=== PATIENT | female | born 1975 | race Caucasian/White ===

== ENCOUNTER 2021-05-09 15:24 | Outpatient (CLI) | payer OTHER, SELFPAY ==
[2021-05-09 16:00] LABS: SARS-CoV-2 Ag Negative (Negative)
== END 2021-05-09 15:25 | disposition home or self-care (01) ==
LOC: CHSLAB 15:33
PROVIDERS: PCP Family Medicine; Visit Provider Physician Assistant
DX: Z20.822 Contact with and (suspected) exposure to COVID-19 (principal)
CPT/HCPCS: 87426; C9803

== ENCOUNTER 2021-08-29 16:17 | Emergency (ER) | payer OTHER, SELFPAY ==
--- NOTE | ~2021-08-29 | XR_ITS ---
EXAMINATION: XR pelvis 1-2V DATE: 08/29/2021 17:58 INDICATION: Pelvis injury. TECHNIQUE: An anteroposterior view of the pelvis was obtained. COMPARISON: None. FINDINGS: Bone alignment is normal. No fracture. There is moderate lumbar spondylosis. The hip joint spaces are normal. IMPRESSION: 1. No fracture. Reviewed, dictated and finalized at location A. IMPRESSION: 1. No fracture.
[2021-08-29] MEDS: KETOROLAC (*BKC) 60 MG/2 ML VIAL IM (17:47)
[2021-08-29 17:49] VITALS: BP 126/75; PULSE 62; RESP 20; TEMP 36.7; O2SAT 97
--- NOTE | 2021-08-29 17:55 | ED.WOUNDLAC ---
HPI - Wound/Laceration General Chief Complaint: Urogenital-Female Stated Complaint: vagina pain Source: patient and family Mode of arrival: ambulatory History of Present Illness HPI narrative: patient presents after she injured the left pelvic and groin area has a swollen bruised left perennial area with tenderness hematoma and bruising with no bleeding there is tenderness with palpation and movement. Onset (ago): hour(s) Location: genitals Related Data Home Medications Medication Instructions Recorded Confirmed hydrocodone-acetaminophen 5 - 325 tablet Q6-8H PRN 08/29/21 08/29/21 pregabalin 75 mg DAILY 08/29/21 08/29/21 Allergies Allergy/AdvReac Type Severity Reaction Status Date / Time No Known Allergies Allergy Verified 08/29/21 17:38 Review of Systems Review of Systems: All systems reviewed & are unremarkable except as noted in HPI and below PMFSH Past Medical History Medical History Chronic pain Fibromyalgia Exam Const: General: no acute distress Orientation/consciousness: patient oriented x3 HENMT: Head: normal to inspection Eyes: Conjunctivae: conjunctivae normal Pupils: Equal, round and reactive pupils present Neck: Neck: normal visual inspection Chest: Chest palpation & inspection: normal inspection of the chest Resp: Effort & Inspection: normal respiratory effort Cardio: Rate: regular rate Rhythm: regular rhythm GI: GI Palp: Yes Soft to palpation Skin: Other: bruising swelling with hematoma left groin area Neuro: General: patient oriented x3 Extrem: General: normal to inspection and no pedal edema Psych: Mental Status: mental status grossly normal Affect: normal affect Course Course Emergency Course: patient received Toradol, and x-ray performed reviewed with patient and family Critical Care Time Critical Care Time Critical Care Time: No Discharge Plan Discharge Clinical Impression: Contusion Qualifiers: Encounter type: initial encounter Contusion area: pelvic area Qualified Code(s): S30.0XXA - Contusion of lower back and pelvis, initial encounter Patient Disposition: Home, Self-Care Condition: Stable Instructions: Antibiotic Form, Contusion in Adults (ED) Additional Instructions: take medicine as prescribed can use ice to affected area in follow-up primary care physician if symptoms persist or worsen. Prescriptions: New tramadol [Ultram] 50 mg tablet 50 mg PO Q6H PRN (Reason: pain) Qty: 20 RF: 0 No Action hydrocodone-acetaminophen 5-325 mg tablet 5 - 325 tablet Q6-8H PRN (Reason: Pain) RF: 0 pregabalin 75 mg capsule 75 mg DAILY RF: 0 Follow-up/Referrals: Greg Winn M.D. [Primary Care Provider] - Time of Disposition: 18:37
[2021-08-29 18:51] VITALS: BP 93/72; PULSE 63; RESP 16; O2SAT 98
== END 2021-08-29 18:53 | disposition home or self-care (01) ==
PROVIDERS: Emergency Provider Emergency Medicine; PCP Family Medicine
DX: S30.0XXA Contusion of lower back and pelvis, initial encounter (principal)
CPT/HCPCS: 72170; 96372; 99283; J1885

== ENCOUNTER 2021-12-05 17:30 | Inpatient (IN) | payer OTHER, SELFPAY ==
[2021-12-05] VITALS (13 sets, daily range): BP systolic 114–143; BP diastolic 64–84; PULSE 41–74; RESP 12–24; TEMP 36.9; O2SAT 93–100; BMI 15.4
--- NOTE | ~2021-12-05 | CT_ITS ---
EXAMINATION: CT abdomen pelvis wo con DATE: 12/05/2021 18:53 INDICATION: Generalized abdominal pain. Nausea and vomiting. TECHNIQUE: Computed tomography (CT) of the abdomen and pelvis was performed without intravenous contr ast. Automated exposure control and iterative reconstruction technique were employed. The dose-length product was 170.99 mGy-cm. COMPARISON: None. FINDINGS: The visualized portions of the lung bases demonstrate mild atelectasis in left lower lobe. No pleural effusion. The heart size is normal. No pericardial effusion. Pectus excavatum is noted. Th ere is a 3.3 cm cyst in the liver. The spleen is normal. The gallbladder, pancreas, adrenal glands, a nd left kidney are normal. There is a 2 mm stone in right kidney. There are no dilated loops of bowel . The appendix is not visualized. There are no pathologically enlarged lymph nodes. There is no free intraperitoneal fluid. There is moderate lumbar spondylosis. IMPRESSION: 1. 2 mm nonobstructing right kidney stone. Reviewed, dictated and finalized at location A.
--- NOTE | 2021-12-05 17:40 | ECG_ITS ---
Measurements Intervals [place] Rate: 40 P: 69 DC: 159 QRS: 95 QRSD: 83 T: 75 QT: 503 QTc: 414 Interpretive Statements SINUS BRADYCARDIA POSSIBLE LEFT ATRIAL ENLARGEMENT [-0.1mV P-WAVE IN V1/V2] BORDERLINE RIGHT AXIS DEVIATION [QRS AXIS > 90] OTHERWISE UNREMARKABLE ECG NO PREVIOUS ECG AVAILABLE FOR COMPARISON Electronically Signed On 12-06-2021 12:09:12 CDT by Bronson Douglass M.D.
[2021-12-05] MEDS: ONDANSETRON INJ 4 MG/2 ML VIAL IV PUSH ×2 (17:53→22:03)
[2021-12-05 18:21] LABS: Basophils Absolute Auto 0.04 K/mm3 (0.00-0.10); Basophils Percent Auto 0.3 % (0.0-1.0); Eosinophils Absolute Auto 0.08 K/mm3 (0.02-0.50); Eosinophils Percent Auto 0.7 % (1.0-6.0); Hematocrit 36.7 % (35.0-49.0); Hemoglobin 12.7 g/dL (12.0-15.0); Immature Granulocyte Absolute 0.06 K/mm3 (0.00-0.00); Immature Granulocyte Percent A 0.5 % (0.0-0.0); Lymphocytes Absolute Auto 2.11 K/mm3 (1.10-4.50); Lymphocytes Percent Auto 17.7 % (18.0-42.0); Mean Corpuscular HGB Conc 34.6 g/dL (32.0-36.0); Mean Corpuscular Hemoglobin 31.9 pg (27.0-31.0); Mean Corpuscular Volume 92.2 fL (78.0-102.0); Mean Platelet Volume 11.4 fl (9.2-11.8); Monocytes Absolute Auto 0.94 K/mm3 (0.10-0.90); Monocytes Percent Auto 7.9 % (2.0-11.0); Neutrophils Absolute Auto 8.7 K/mm3 (1.7-7.2); Neutrophils Percent Auto 72.9 % (50.0-70.0); Platelet Count Result 186 K/mm3 (150-420); Red Blood Count 3.98 M/mm3 (4.20-5.40); Red Cell Distribution Width 12.4 % (11.6-14.4); White Blood Count 11.9 K/mm3 (4.8-10.8)
[2021-12-05 18:38] LABS: Pregnancy On Board Control Positive; Urine Pregnancy Test Negative
[2021-12-05 18:41] LABS: Add Urine Microscopic? YES; Appearance Urine Clear (Clear); Bilirubin Urine 1+ (Negative); Blood Urine 3+ (Negative); Color Urine Brown (Yellow); Glucose Urine UA Trace (Negative); Ketones Urine 2+ (Negative); Leukocyte Esterase Ur Trace (Negative); Nitrate Urine Negative (Negative); Protein Urine 2+ (Negative); Specific Grav Ur 1.015 (1.010-1.020); pH Urine 8.5 (5.0-8.0)
[2021-12-05 18:45] LABS: Bacteria Urine 2+ /hpf; Mucus Urine Few /lpf; RBC Urine >75 /hpf (0-2); Squamous Epithelial Cell Urine Few /hpf (Few)
[2021-12-05 18:48] LABS: Alanine Aminotransferase 21 U/L (14-59); Albumin Level 3.9 g/dL (3.4-5.0); Alkaline Phosphatase 57 U/L (46-116); Anion Gap 12 mmol/L (8-16); Aspartate Amino Transferase 15 U/L (15-37); Bilirubin,Total 0.8 mg/dL (0.00-1.00); Blood Urea Nitrogen 18 mg/dL (7-18); Carbon Dioxide 25 mmol/L (21-32); Chloride 102 mmol/L (98-108); Estimated CRCL calculation 50 ml/min; Estimated Glomerular Filt Rate > 60; Glucose 109 mg/dL (70-99); Lipase 81 U/L (73-393); Osmolality Calculated 290 mOsm/kg (285-295); Potassium 2.9 mmol/L (3.5-5.1); Sodium 139 mmol/L (136-145); Thyroid Stimulating Hormone 1.81 uIU/mL (0.36-3.74); Total Protein 6.7 g/dL (6.4-8.2)
[2021-12-05 18:49] LABS: Amphetamine Screen Urine Negative (Negative); Barbiturate Screen Urine Negative (Negative); Benzodiazepines Screen Urine Negative (Negative); Cannabinoid Screen Urine Positive (Negative); Cocaine Screen Urine Negative (Negative); Methadone Screen Urine Negative (Negative); Opiate Screen Urine Negative (Negative); Phencyclidine Screen Urine Negative (Negative)
[2021-12-05] MEDS: METOCLOPRAMIDE HCL INJ 10 MG/2 ML VIAL IV PUSH (18:55)
[2021-12-05 19:00] LABS: CRP < 0.2 mg/dL (0.0-0.9)
[2021-12-05] MEDS: SODIUM CHLORIDE 0.9% IV 1,000 ML 999 ML IV CONT (19:27)
[2021-12-05] MEDS: KCL 20 MEQ/SW 100 ML 100 ML 50 MEQ IVPB (19:28)
--- NOTE | 2021-12-05 19:31 | ED.NAVMDI ---
HPI - Nausea/Vomiting/Diarrhea General Chief complaint: Nausea/Vomiting/Diarrhea Stated complaint: amb Time Seen by Provider: 12/05/21 17:39 Source: patient Mode of arrival: EMS Limitations: no limitations History of Present Illness HPI Narrative: This is a 46-year-old female with history of fibromyalgia and chronic pain currently taking pregabalin, presents via EMS with some nausea and vomiting some diffuse abdominal discomfort with dysuria and does some mild flank pain. Symptoms started 2 to 3 days ago and have worsened, currently afebrile vital signs blood pressure is stable the patient initially had a heart rate in the 40s, with no chest pain no shortness of breath, does have some dysuria and no hematuria. MD elicited complaint: nausea, vomiting and abdominal pain Onset (ago): day(s) Description of vomiting: watery Description of diarrhea: mucus Associated nausea: Yes Associated abdominal pain: Yes Location of pain: diffuse Pain consistency: intermittent Severity: moderate Quality: aching Exacerbating factors: eating Related Data Home Medications Medication Instructions Recorded Confirmed hydrocodone 5 mg-acetaminophen 325 5 - 325 tablet Q6-8H PRN Pain 08/29/21 12/05/21 mg tablet pregabalin 75 mg capsule 75 mg DAILY 08/29/21 12/05/21 Allergies Allergy/AdvReac Type Severity Reaction Status Date / Time No Known Allergies Allergy Verified 12/05/21 17:40 Review of Systems Review of Systems: All systems reviewed & are unremarkable except as noted in HPI and below PMFSH Past Medical History Medical History Chronic pain Fibromyalgia Exam Const: General: ill appearing Limitations: no limitations HENMT: Head: normal to inspection Eyes: Conjunctivae: conjunctivae normal EOM: EOMs intact bilaterally Neck: Neck: normal visual inspection, no lymphadenopathy and no meningeal signs Chest: Chest palpation & inspection: normal inspection of the chest Resp: Effort & Inspection: normal respiratory effort Cardio: Rate: regular rate and bradycardic Rhythm: regular rhythm GI: GI Palp: Yes Soft to palpation and Yes Tenderness to palpation present (GI) Auscultation: normal bowel sounds : General: Yes CVA tenderness Urinary Catheter: Urinary Catheter: patent and draining Skin: General skin exam: normal color Rashes: no rashes Wounds: no wounds Neuro: General: patient oriented x3, moves all extremities, no meningeal signs and no focal motor deficits Psych: Mental Status: mental status grossly normal Affect: normal affect Course Course Emergency Course: Patient received IV fluids and IV Zofran and IV Reglan vomiting has improved, patient initially had a decreased heart rate on EKG, reassessment of patient's heart rate is in the 70s and up to 90s, otherwise patient is more comfortable, with no chest pain no shortness of breath. CT scan abdomen reviewed with patient which showed a right 2mm nonobstructing kidney stone. UA shows a UTI, and potassium was 2.9 patient was started on AK rider and ceftriaxone for her UTI. Vital Signs Vital signs: Vital Signs Temperature 36.9 C 12/05/21 17:30 Pulse Rate 48 L 12/05/21 17:30 Respiratory Rate 20 12/05/21 17:30 Blood Pressure 141/84 H 12/05/21 17:30 Pulse Oximetry 100 12/05/21 17:30 Oxygen Delivery Room Air 12/05/21 17:30 Temperature 36.9 C 12/05/21 17:30 Pulse Rate 41 L 12/05/21 18:30 Respiratory Rate 17 12/05/21 18:30 Blood Pressure 143/80 H 12/05/21 18:30 Pulse Oximetry 100 12/05/21 18:30 Oxygen Delivery Room Air 12/05/21 18:30 MDM - Nausea/Vomiting/Diarrhea Lab Data Result diagrams: 12/05/21 18:07 12/05/21 18:07 Labs: Lab Results 12/05/21 12/05/21 12/05/21 Range/Units 18:07 18:07 18:07 WBC 11.9 H (4.8-10.8) K/mm3 RBC 3.98 L (4.20-5.40) M/mm3 Hgb 12.7 (12.0-15.0) g/dL Hct 36.7 (35.0-49.0)
--- NOTE | 2021-12-05 19:59 | PC.NURSE ---
Called for bed request [id number] admit order by ERP [id number]
--- NOTE | 2021-12-05 20:08 | PC.NURSE ---
PT admitted with K+ and 0.9ns bolus running
--- NOTE | 2021-12-05 20:10 | PC.NURSE ---
Pt transported to floor by lead quality technician
--- NOTE | 2021-12-05 20:15 | ADMGEN ---
This patient, Elena Amaral, was admitted to 2nd Floor Room 205-2. Patient oriented to hospital policies and general routines including ID bracelet, bed and alarms, visiting hours, pain management, procedures, bathroom and other care routines, personal items, smoking policy, room service/diet, and visiting hours. Information on how to activate the Rapid Response Team has been discussed. Patient are encouraged to report perceived risks to care and to ask questions if they do not understand what they are told or what they should do.
[2021-12-05] MEDS: SODIUM CHLORIDE 0.9% IV 1,000 ML 100 ML IV CONT (21:13)
[2021-12-06 03:49] VITALS: BP 134/70; PULSE 68; RESP 18; TEMP 37.4; O2SAT 97
--- NOTE | 2021-12-06 05:02 | PC.NURSE ---
PO potassium ordered at 2310 not given d/t electronic record being down, order did not on print on paper MAR, pt continues to have nausea and vomiting, would not be able to keep med down.
[2021-12-06 05:25] LABS: Hematocrit 33.9 % (35.0-49.0); Hemoglobin 11.5 g/dL (12.0-15.0); Mean Corpuscular HGB Conc 33.9 g/dL (32.0-36.0); Mean Corpuscular Hemoglobin 31.3 pg (27.0-31.0); Mean Corpuscular Volume 92.4 fL (78.0-102.0); Mean Platelet Volume 11.4 fl (9.2-11.8); Platelet Count Result 178 K/mm3 (150-420); Red Blood Count 3.67 M/mm3 (4.20-5.40); Red Cell Distribution Width 12.3 % (11.6-14.4); White Blood Count 16.5 K/mm3 (4.8-10.8)
[2021-12-06 05:45] LABS: Alanine Aminotransferase 20 U/L (14-59); Albumin Level 3.6 g/dL (3.4-5.0); Alkaline Phosphatase 52 U/L (46-116); Anion Gap 11 mmol/L (8-16); Aspartate Amino Transferase 16 U/L (15-37); Bilirubin,Total 0.5 mg/dL (0.00-1.00); Blood Urea Nitrogen 10 mg/dL (7-18); Calcium 8.1 mg/dL (8.5-10.1); Carbon Dioxide 24 mmol/L (21-32); Chloride 102 mmol/L (98-108); Estimated CRCL calculation 61 ml/min; Estimated Glomerular Filt Rate > 60; Glucose 103 mg/dL (70-99); Osmolality Calculated 283 mOsm/kg (285-295); Potassium 3.2 mmol/L (3.5-5.1); Sodium 137 mmol/L (136-145); Total Protein 6.3 g/dL (6.4-8.2)
[2021-12-06] MEDS: SODIUM CHLORIDE 0.9% IV 1,000 ML 100 ML IV CONT ×2 (07:31→17:54)
--- NOTE | 2021-12-06 07:42 | PM.IMHP ---
H&P: HPI History of Present Illness Date/Time: 12/06/21 07:42 Chief Complaint: Nausea and vomiting and abdominal discomfort Narrative: This is a 46-year-old female that presented to our emergency department with complaints of nausea and vomiting. Patient has a past medical history of fibromyalgia and atrial septal defect at . Patient notes that approximately 2 to 3 days ago she started to experiencing abdominal discomfort with nausea and vomiting. Patient notes that she she had a stomach bug. Patient notes when she started to experience weakness is when she decided to call EMS to come to our emergency department. Patient notes that in the past when her potassium was low she will feel weak and thought maybe her potassium was low again. Patient does have a history of fibromyalgia and uses THC and CBD to control her pain patient was also found to have a urinary tract infection. Vital signs 97.2, 44, 14, 98%, 111/71, sodium 139, potassium 2.9, BUN 18, creatinine 0.78, glucose 104,, total bilirubin 0.5, AST 16, ALT 20, CRP 0.2, TSH 1.81, UA positive for protein glucose ketones blood bilirubin urobilinogen leukocyte Estrace and bacteria toxicology positive for cannabis pelvis x-ray no fracture noted CT of the abdomen and pelvis indicates 2 mm obstructive right kidney stone. Today patient is still experiencing nausea and vomiting she will be made n.p.o. and receive Reglan along with Compazine and antibiotic to treat her urinary tract infection. The patient denies SOB, CP, palpitation, extremity numbness, lightheadedness, dizziness, constipation, diarrhea, chills, or fever. Review of Systems Review of Systems: A 14 organ system Review of Systems was performed and pertinent positives included in the HPI, otherwise remaining ROS is negative. [facility] Past Medical History Medical History Chronic pain Fibromyalgia Social History Social History Smoking packs per day: 1 Smoking cigarettes per day: 20.0 Years smoked: 30 Smoking pack-years: 30.00 Smoking status: Current every day smoker Tobacco type: cigarettes Second hand tobacco smoke exposure: Yes Substance use: current Substance use type: marijuana Last use: today Spiritual care concerns: No Meds Home Medications and Allergies Home Medications Medication Instructions Recorded Confirmed Type hydrocodone 5 mg-acetaminophen 325 5 - 325 tablet Q6-8H PRN Pain 08/29/21 12/05/21 History mg tablet pregabalin 75 mg capsule 75 mg DAILY 08/29/21 12/05/21 History Allergies Allergy/AdvReac Type Severity Reaction Status Date / Time No Known Allergies Allergy Verified 12/05/21 17:40 Vital Signs Vital Signs - 24 hr 12/05/21 17:30 12/05/21 18:00 12/05/21 18:30 Temperature 98.5 F Pulse Rate 48 L 49 L 41 L Respiratory Rate 20 16 17 Blood Pressure 141/84 H 139/81 143/80 H Pulse Oximetry 100 99 100 Oxygen Delivery Room Air Room Air Room Air 12/05/21 19:08 12/05/21 19:15 12/05/21 19:17 Temperature Pulse Rate 43 L 46 L 47 L Respiratory Rate 21 H 24 H 22 H Blood Pressure 114/65 Pulse Oximetry 100 99 93 Oxygen Delivery 12/05/21 19:30 12/05/21 19:33 12/05/21 19:45 Temperature Pulse Rate 74 68 45 L Respiratory Rate 22 H 18 21 H Blood Pressure 129/76 Pulse Oximetry 99 100 100 Oxygen Delivery 12/05/21 19:46 12/05/21 20:00 12/05/21 20:15 Temperature Pulse Rate 45 L 45 L 43 L Respiratory Rate 17 12 Blood Pressure 123/74 Pulse Oximetry 98 Oxygen Delivery 12/05/21 23:50 12/05/21 23:50 12/06/21 03:49 Temperature 98.4 F Pulse Rate 50 L 43 L 68 Respiratory Rate 20 Blood Pressure 132/64 Pulse Oximetry 99 Oxygen Delivery Room Air 12/06/21 03:49 Temperature 99.4 F Pulse Rate 68 Respiratory Rate 18 Blood Pressure 134/70 Pulse Oximetry 97 Oxygen Delivery Room Air Exam Narrativ
[2021-12-06 08:00] VITALS: BP 111/71; PULSE 44; RESP 14; TEMP 36.2; O2SAT 98
[2021-12-06] MEDS: LORazepam INJ (*CRX) 2 MG/ML VIAL 0.5 MG IV PUSH (08:10)
[2021-12-06] MEDS: KCL 20 MEQ/SW 100 ML 100 ML 50 MEQ IVPB (08:11)
[2021-12-06] MEDS: PANTOPRAZOLE SODIUM IV 40 MG VIAL IV PUSH ×2 (09:28→20:43)
[2021-12-06] MEDS: METOCLOPRAMIDE HCL INJ 10 MG/2 ML VIAL IV PUSH ×3 (11:36→23:47)
[2021-12-06 12:00] VITALS: PULSE 57
[2021-12-06 16:00] VITALS: BP 107/68; PULSE 53; RESP 17; TEMP 37.1; O2SAT 97
[2021-12-06] MEDS: PROCHLORPERAZINE EDISYLATE 10 MG/2 ML VIAL IV PUSH (16:40)
[2021-12-06 20:00] VITALS: PULSE 58
[2021-12-06] MEDS: CAPSAICIN 0.025% CREAM 60 GM TUBE 1 APPLIC TOPICAL (21:28)
[2021-12-07] VITALS: BP 113/68; PULSE 58; RESP 16; TEMP 36.8; O2SAT 96
[2021-12-07 05:30] LABS: Hemoglobin 10.5 g/dL (12.0-15.0); Mean Corpuscular HGB Conc 33.9 g/dL (32.0-36.0); Mean Corpuscular Hemoglobin 31.3 pg (27.0-31.0); Mean Corpuscular Volume 92.5 fL (78.0-102.0); Mean Platelet Volume 10.8 fl (9.2-11.8); Platelet Count Result 156 K/mm3 (150-420); Red Blood Count 3.35 M/mm3 (4.20-5.40); Red Cell Distribution Width 12.3 % (11.6-14.4); White Blood Count 10.3 K/mm3 (4.8-10.8)
[2021-12-07 05:47] LABS: Alanine Aminotransferase 15 U/L (14-59); Alkaline Phosphatase 42 U/L (46-116); Anion Gap 12 mmol/L (8-16); Aspartate Amino Transferase 14 U/L (15-37); Bilirubin,Total 0.6 mg/dL (0.00-1.00); Blood Urea Nitrogen 10 mg/dL (7-18); Carbon Dioxide 19 mmol/L (21-32); Chloride 106 mmol/L (98-108); Estimated CRCL calculation 65 ml/min; Estimated Glomerular Filt Rate > 60; Glucose 72 mg/dL (70-99); Magnesium 2.1 mg/dL (1.8-2.4); Osmolality Calculated 282 mOsm/kg (285-295); Potassium 3.2 mmol/L (3.5-5.1); Sodium 137 mmol/L (136-145); Total Protein 5.3 g/dL (6.4-8.2)
[2021-12-07] MEDS: METOCLOPRAMIDE HCL INJ 10 MG/2 ML VIAL IV PUSH (05:50)
[2021-12-07] MEDS: CAPSAICIN 0.025% CREAM 60 GM TUBE 1 APPLIC TOPICAL (05:50)
--- NOTE | 2021-12-07 06:06 | PC.NURSE ---
Urine strained throughout shift with no stone found.
--- NOTE | 2021-12-07 06:48 | PM.DS ---
DS: Admitting Diagnosis Discharge Date 12/07/2021 Admitting Diagnosis Nausea vomiting possibly secondary to cannabis hyperemsis and urinary tract infection DS: Discharge Diagnosis Discharge Diagnosis (1) Nausea & vomiting: Qualifiers: Vomiting type: unspecified Qualified Code(s): R11.2 - Nausea with vomiting, unspecified Code(s): R11.2 - Nausea with vomiting, unspecified Status: Acute Assessment and Plan: Possibly secondary to cannabis hyperemesis Patient uses cannabis for chronic pain fibromyalgia Patient given educational material on diagnosis Will advance patient's diet slowly Will discharge home with Reglan and Compazine (2) UTI (urinary tract infection): Qualifiers: Hematuria presence: without hematuria Urinary tract infection type: acute cystitis Qualified Code(s): N30.00 - Acute cystitis without hematuria Code(s): N39.0 - Urinary tract infection, site not specified Status: Acute Assessment and Plan: UA positive for glucose, protein, leukocyte Estrace Continue Rocephin Discharge home with cefdinir (3) Acute hypokalemia: Code(s): E87.6 - Hypokalemia Status: Acute Assessment and Plan: Potassium 2.9>3.2>3.2 Secondary to nausea and vomiting She will discharge home with supplements for 1 week and follow-up with her primary care physician (4) Fibromyalgia: Code(s): M79.7 - Fibromyalgia Status: Acute Assessment and Plan: Patient uses cannabis for treatment Active to use other methods due to nausea and vomiting induced by cannabis use (5) Chronic pain: Code(s): G89.29 - Other chronic pain Status: Acute (6) Bradycardia: Code(s): R00.1 - Bradycardia, unspecified Status: Acute Assessment and Plan: Chronic history of atrial septal defect (7) Kidney stone: Code(s): N20.0 - Calculus of kidney Status: Acute Assessment and Plan: Imaging indicates a 2 mm nonobstructive right kidney stone No intervention needed Straining urine DS: Summary Hospital Course Reason for hospitalization: This is a 46-year-old female that presented to our emergency department with complaints of nausea and vomiting.? Patient has a past medical history of fibromyalgia and atrial septal defect at .? Patient notes that approximately 2 to 3 days ago she started to experiencing abdominal discomfort with nausea and vomiting.? Patient notes that she she had a stomach bug.? Patient notes when she started to experience weakness is when she decided to call EMS to come to our emergency department.? Patient notes that in the past when her potassium was low she will feel weak and thought maybe her potassium was low again.? Patient does have a history of fibromyalgia and uses THC and CBD to control her pain patient was also found to have a urinary tract infection.? Patient will discharge today cefdinir she will also be given Compazine and Reglan and instructed to eat a clear liquid diet to refrain from the use of cannabis and use other forms of pain management. The patient denies SOB, CP, palpitation, extremity numbness, lightheadedness, dizziness, constipation, diarrhea, chills, or fever. Patient condition has improved. Discharge instructions reviewed with patient, as well as provided in writing per nursing staff. The instructions also include specific and strict return/GO TO THE ER as well as f/u information. All questions have been answered, and the patient and/or family deny any further questions with discharge and discharge plan. Hospital Course: This is a 46-year-old female that presented to our emergency department with complaints of nausea and vomiting.? Patient has a past medical history of fibromyalgia and atrial septal defect at .? Patient notes that approximately 2 to 3 days ago she started to experiencing abdominal discomfort with nausea and vomiting.? Patient notes that she she had
[2021-12-07 08:00] VITALS: BP 122/72; PULSE 44; RESP 16; TEMP 36.6; O2SAT 95
[2021-12-07] MEDS: PANTOPRAZOLE SODIUM IV 40 MG VIAL IV PUSH (08:12)
--- NOTE | 2021-12-07 09:10 | PC.NURSE ---
Patient discharged from unit in w/c, accompanied by sister and public relations writer. Discharge instructions given to patient and her sister and both voiced understanding. IV site discontinued in anticipation of discharge. Personal items sent home with patient. Patient left facility in private vehicle.
--- NOTE | 2021-12-09 11:32 | PC.NURSE ---
Pt states she received and understood her discharge instructions. Pt states her nurse was amazing .
== END 2021-12-07 09:10 | disposition home or self-care (01) | DRG 463 ==
LOC: CHSED 19:38 → CHS2ND 19:47
PROVIDERS: Nurse Practitioner; Admitting Provider Internal Medicine; Emergency Provider Emergency Medicine; PCP Family Medicine; Visit Provider Internal Medicine
DX: N39.0 Urinary tract infection, site not specified (principal); Q21.1 Atrial septal defect; E87.6 Hypokalemia; N20.0 Calculus of kidney; M79.7 Fibromyalgia; G89.29 Other chronic pain; R11.2 Nausea with vomiting, unspecified; R00.1 Bradycardia, unspecified; F17.210 Nicotine dependence, cigarettes, uncomplicated; F12.90 Cannabis use, unspecified, uncomplicated
CPT/HCPCS: 36415; 74176; 80053; 80307; 81001; 81025; 82947; 83690; 83735; 84443; 85025; 85027; 86140; 87040; 87086; 87088; 93005; 96374; 96375; 99285; A9270; C9113; J0696; J0780; J2060; J2405; J2765; J3480; J7030

== ENCOUNTER 2022-11-03 19:25 | Emergency (ER) | payer OTHER, SELFPAY ==
[2022-11-03 19:25] VITALS: O2SAT 100
[2022-11-03 19:31] VITALS: BP 84/69; PULSE 65; RESP 20; O2SAT 98
--- NOTE | 2022-11-03 19:39 | ECG_ITS ---
Measurements Intervals [place] Rate: 62 P: 79 [place]: 172 QRS: 92 QRSD: 90 T: 61 QT: 429 QTc: 438 Interpretive Statements SINUS RHYTHM RIGHT AXIS DEVIATION POSSIBLE RIGHT ATRIAL ENLARGEMENT LEFT ATRIAL ENLARGEMENT INCOMPLETE RIGHT BUNDLE BRANCH BLOCK BORDERLINE ECG COMPARED TO ECG 12/05/2021 17:42:16 SINUS RHYTHM NOW PRESENT Electronically Signed On 11-03-2022 20:17:09 CDT by Gallito Lynch D.O.
[2022-11-03 19:50] LABS: Basophils Absolute Auto 0.07 K/mm3 (0.00-0.10); Basophils Percent Auto 0.8 % (0.0-1.0); Eosinophils Absolute Auto 0.27 K/mm3 (0.02-0.50); Hemoglobin 11.6 g/dL (12.0-15.0); Immature Granulocyte Absolute 0.03 K/mm3 (0.00-0.00); Immature Granulocyte Percent A 0.3 % (0.0-0.0); Lymphocytes Absolute Auto 2.48 K/mm3 (1.10-4.50); Lymphocytes Percent Auto 27.9 % (18.0-42.0); Mean Corpuscular HGB Conc 33.1 g/dL (32.0-36.0); Mean Corpuscular Hemoglobin 31.7 pg (27.0-31.0); Mean Corpuscular Volume 95.6 fL (78.0-102.0); Mean Platelet Volume 10.8 fl (9.2-11.8); Monocytes Absolute Auto 0.52 K/mm3 (0.10-0.90); Monocytes Percent Auto 5.9 % (2.0-11.0); Neutrophils Absolute Auto 5.5 K/mm3 (1.7-7.2); Neutrophils Percent Auto 62.1 % (50.0-70.0); Platelet Count Result 167 K/mm3 (150-420); Red Blood Count 3.66 M/mm3 (4.20-5.40); Red Cell Distribution Width 12.6 % (11.6-14.4); White Blood Count 8.9 K/mm3 (4.8-10.8)
[2022-11-03 20:00] VITALS: BP 103/69; PULSE 59; RESP 18; O2SAT 99
[2022-11-03 20:08] LABS: Alanine Aminotransferase 19 U/L (14-59); Albumin Level 3.1 g/dL (3.4-5.0); Alkaline Phosphatase 56 U/L (46-116); Anion Gap 5 mmol/L (8-16); Aspartate Amino Transferase 13 U/L (15-37); Bilirubin,Total 0.2 mg/dL (0.00-1.00); Blood Urea Nitrogen 12 mg/dL (7-18); Carbon Dioxide 29 mmol/L (21-32); Chloride 107 mmol/L (98-108); Estimated CRCL calculation 55 ml/min; Estimated Glomerular Filt Rate > 60; Glucose 98 mg/dL (70-99); Osmolality Calculated 291 mOsm/kg (285-295); Potassium 3.8 mmol/L (3.5-5.1); Sodium 141 mmol/L (136-145); Total Protein 5.6 g/dL (6.4-8.2)
[2022-11-03 20:10] LABS: Lactic Acid Reflex 1.2 mmol/L (0.4-2.0)
--- NOTE | 2022-11-03 20:20 | ED.GENADULT ---
HPI - General Adult General Chief complaint: Syncope Stated complaint: Unspecified History of Present Illness HPI narrative: 47yo woman presents after an episode of near syncope while standing in the kitchen preparing chicken. Denies any symptoms currently and would like to leave, says her family made her come to get checked out. Specifically, no chest pain, dyspnea, fever, chills, cough, vomiting, diarrhea, dysuria, joint swelling or pain. Pt admits she does not eat much or drink enough water and feels a litle dehydrated. 1L NS given (finished bag provided by EMS). Related Data Home Medications Medication Instructions Recorded Confirmed hydrocodone 5 mg-acetaminophen 325 5 - 325 tablet Q6-8H PRN Pain 08/29/21 11/03/22 mg tablet albuterol sulfate 90 mcg/actuation 2 puff inhalation Q4-6H PRN 11/03/22 11/03/22 aerosol inhaler Shortness Of Breath duloxetine 60 mg capsule,delayed 60 mg PO DAILY 11/03/22 11/03/22 release meloxicam 15 mg tablet 15 mg PO DAILY 11/03/22 11/03/22 Allergies Allergy/AdvReac Type Severity Reaction Status Date / Time No Known Allergies Allergy Verified 12/05/21 17:40 Review of Systems Review of Systems: All systems reviewed & are unremarkable except as noted in HPI and below Constitutional: Constitutional: Denies chills and Denies fever(s) ENT: Denies dysphagia Cardiovascular: Cardiovascular: Denies chest pain Respiratory: Respiratory: Denies cough and Denies dyspnea Gastrointestinal: Gastrointestinal: Denies abdominal pain PMFSH Past Medical History Medical History Chronic pain Fibromyalgia Social History Social History Smoking packs per day: 1 Smoking cigarettes per day: 20.0 Years smoked: 30 Smoking pack-years: 30.00 Smoking status: Current every day smoker Tobacco type: cigarettes Second hand tobacco smoke exposure: Yes Substance use: current Substance use type: marijuana Last use: today Spiritual care concerns: No Exam Const: General: healthy appearing and no acute distress Nutritional Appearance: well nourished and thin Eyes: Conjunctivae: conjunctivae normal Neck: Neck: no meningeal signs Resp: Effort & Inspection: normal respiratory effort and not labored Auscultation: clear to auscultation bilaterally Cardio: Rate: regular rate Rhythm: regular rhythm Heart sounds: no murmurs GI: Inspection: non-distended GI Palp: Yes Soft to palpation and No Tenderness to palpation present (GI) Skin: General skin exam: normal color, no jaundice and no pallor Neuro: General: patient oriented x3, moves all extremities and no focal motor deficits Speech: normal speech Gait exam (Neuro): Normal gait present Extrem: General: no clubbing, cyanosis or edema Course Vital Signs Vital signs: Vital Signs Pulse Oximetry 100 11/03/22 19:25 Oxygen Delivery Room Air 11/03/22 19:25 Pulse Rate 59 L 11/03/22 20:00 Respiratory Rate 18 11/03/22 20:00 Blood Pressure 103/69 11/03/22 20:00 Pulse Oximetry 99 11/03/22 20:00 Oxygen Delivery Room Air 11/03/22 20:00 Medical Decision Making MDM Narrative Medical decision making narrative: near syncope DDx dehydration, heat exhaustion, electrolyte disturbance, renal failure, occult infection. No evidence of venous thromboembolism. Vital Signs Vital Signs: Vital Signs Pulse Oximetry 100 11/03/22 19:25 Oxygen Delivery Room Air 11/03/22 19:25 Pulse Rate 59 L 11/03/22 20:00 Respiratory Rate 18 11/03/22 20:00 Blood Pressure 103/69 11/03/22 20:00 Pulse Oximetry 99 11/03/22 20:00 Oxygen Delivery Room Air 11/03/22 20:00 Lab Data 11/03/22 19:46 11/03/22 19:46 Labs: Lab Results 11/03/22 Range/Units 19:46 WBC 8.9 (4.8-10.8) K/mm3 RBC 3.66 L (4.20-5.40) M/mm3 Hgb 11.6 L (12.0-15
[2022-11-03 20:37] VITALS: BP 99/63; PULSE 65; RESP 18; TEMP 36.6; O2SAT 99
== END 2022-11-03 20:42 | disposition home or self-care (01) ==
PROVIDERS: Emergency Provider Emergency Medicine; PCP Family Medicine
DX: R55 Syncope and collapse (principal); E86.0 Dehydration; F17.210 Nicotine dependence, cigarettes, uncomplicated; Z79.891 Long term (current) use of opiate analgesic; Z79.1 Long term (current) use of non-steroidal anti-inflammatories (NSAID)
CPT/HCPCS: 36415; 80053; 83605; 84484; 85025; 93005; 99284

== ENCOUNTER 2024-04-29 13:22 | Emergency (ER) | payer OTHER, SELFPAY ==
[2024-04-29 13:22] VITALS: BP 115/83; PULSE 96; RESP 18; TEMP 37; O2SAT 98
--- NOTE | 2024-04-29 13:31 | ED_ITS ---
HPI - General Adult General Chief complaint: Wound/Laceration Stated complaint: right hand laceration Time Seen by Provider: 04/29/24 13:31 Source: patient and family Mode of arrival: ambulatory Limitations: no limitations History of Present Illness HPI narrative: 48 YEARS OLD WHITE FEMALE CAME TO THE ED BY PRIVATE CAR WITH RIGHT HAND LACERATION WHILE CLEANING GLASS. SHE DENIES OTHER INJURIES, PATIENT IS UP-TO- DATE FOR TETANUS SHOT LESS THAN 5 YEARS Related Data Home Medications ?Medication ?Instructions ?Recorded ?Confirmed ?Last Taken ?Type hydrocodone 5 mg-acetaminophen 325 5 - 325 tablet Q6-8H PRN Pain 08/29/21 11/03/22 Unknown History mg tablet albuterol sulfate 90 mcg/actuation 2 puff inhalation Q4-6H PRN 11/03/22 11/03/22 Unknown History aerosol inhaler Shortness Of Breath duloxetine 60 mg capsule,delayed 60 mg PO DAILY 11/03/22 11/03/22 Unknown History release meloxicam 15 mg tablet 15 mg PO DAILY 11/03/22 11/03/22 Unknown History Allergies Allergy/AdvReac Type Severity Reaction Status Date / Time No Known Allergies Allergy Verified 12/05/21 17:40 Review of Systems Review of Systems: All systems reviewed & are unremarkable except as noted in HPI and below PMFSH Past Medical History Medical History Chronic pain Fibromyalgia Social History Social History Smoking packs per day: 1 Smoking cigarettes per day: 20.0 Years smoked: 30 Smoking pack-years: 30.00 Smoking status: Current every day smoker Tobacco type: cigarettes Second hand tobacco smoke exposure: Yes Substance use: current Substance use type: marijuana Last use: today Spiritual care concerns: No Exam Narrative: GENERAL APPEARANCE: WELL-DEVELOPED, WELL-NOURISHED SKIN: NORMAL COLOR HEAD: NORMOCEPHALIC, NONTRAUMATIC CHEST AND RESPIRATORY: AIRWAY PATENT, NO RESPIRATORY DISTRESS, NO ACCESSORY MUSCLE USE HEART: REGULAR RATE/RHYTHM ABDOMEN: SOFT, NONTENDER, NO ORGANOMEGALY, QUIET BOWEL SOUNDS VASCULAR: NORMAL PERIPHERAL PULSES, NORMAL CAPILLARY REFILL. MUSCULOSKELETAL: RIGHT HAND EXAM SHOWED 1.5 SUBCUTANEOUS LACERATION AT THE DORSAL SIDE, NO LIGAMENTOUS OR TENDON INVOLVEMENT. NEUROLOGIC: ALERT AND ORIENTED ?3 Course Vital Signs Vital signs: Vital Signs Temperature 37.0 C 04/29/24 13:22 Pulse Rate 96 04/29/24 13:22 Respiratory Rate 18 04/29/24 13:22 Blood Pressure 115/83 04/29/24 13:22 Pulse Oximetry 98 04/29/24 13:22 Oxygen Delivery Room Air 04/29/24 13:22 Temperature 36.8 C 04/29/24 14:29 Pulse Rate 72 04/29/24 14:29 Respiratory Rate 16 04/29/24 14:29 Blood Pressure 105/68 04/29/24 14:29 Pulse Oximetry 97 04/29/24 14:29 Oxygen Delivery Room Air 04/29/24 14:29 Procedures Laceration Laceration 1: Date: 04/29/24 Time: 14:22 Site: hand Side (If applicable): right Size (cm): 1.5 Description: clean Depth: simple, single layer Local Anesthetic: lidocaine 1% and with epi Amount of anesthesia used (mL): 3 Pre-repair: wound explored ====== Skin Level ====== Skin layer closed with: nylon Size (cm): 6-0 Number of sutures: 4 Technique: simple, interrupted ====== Subcutaneous Layer ====== ====== Muscle Layer ====== ====== Tendon Layer ====== Medical Decision Making [facility] Narrative Medical decision making narrative: RIGHT HAND LACERATION, SUTURES X4. Differential Diagnosis Differential Diagnosis: HAND LACERATION Vital Signs Vital Signs: Vital Signs Temperature 37.0 C 04/29/24 13:22 Pulse Rate 96 04/29/24 13:22 Respiratory Rate 18 04/29/24 13:22 Blood Pressure 115/83 04/29/24 13:22 Pulse Oximetry 98 04/29/24 13:22 Oxygen Delivery Room Air 04/29/24 13:22 Temperature 36.8 C 04/29/24 14:29 Pulse Rate 72 04/29/24 14:29 Respiratory Rate 16 04/29/24 14:29 Blood Pressure 105/68 04/29/24 14:29 Pulse Oximetry 97 04/29/24 14:29 Oxygen Delivery Room Air 04/29/24 14:29 Critical Care Time Critical Care Time Critical Care Time: No Discharge Plan Discharge Clinical Impression: Hand laceration Patient Disposition: Home, Self-Care Condition: Improved Instructions: Laceration (DC) Additional Instructions: Return if symptoms are worsening , call your family physician for appointment, take Tylenol, ibuprofen as as needed for aches and pain, continue home medications. new line remove sutures in 8 days Patient Language: Divehi Prescriptions: No Action hydrocodone-acetaminophen 5-325 mg tablet 5 - 325 tablet Q6-8H PRN (Reason: Pain) meloxicam 15 mg tablet 15 mg PO DAILY albuterol sulfate 90 mcg/actuation HFA aerosol inhaler 2 puff INHALATION Q4-6H PRN (Reason: Shortness Of Breath) duloxetine 60 mg capsule,delayed release(DR/EC) 60 mg PO DAILY Follow-up/Referrals: Greg Winn M.D. [Primary Care Provider] -
[2024-04-29 14:29] VITALS: BP 105/68; PULSE 72; RESP 16; TEMP 36.8; O2SAT 97
== END 2024-04-29 14:29 | disposition home or self-care (01) ==
PROVIDERS: Emergency Provider Emergency Medicine; PCP Family Medicine
DX: S61.411A Laceration without foreign body of right hand, initial encounter (principal); W25.XXXA Contact with sharp glass, initial encounter; F17.210 Nicotine dependence, cigarettes, uncomplicated; F12.90 Cannabis use, unspecified, uncomplicated
CPT/HCPCS: 12001; 99282

== ENCOUNTER 2024-12-27 17:34 | Emergency (ER) | payer SELFPAY ==
[2024-12-27] VITALS (19 sets, daily range): BP systolic 101–117; BP diastolic 61–83; PULSE 84–96; RESP 13–20; TEMP 36.7; O2SAT 90–98
--- NOTE | ~2024-12-27 | CT_ITS ---
EXAMINATION: CT abdomen pelvis w con DATE: 12/27/2024 19:27 INDICATION: Abdominal pain TECHNIQUE: Computed tomography (CT) of the abdomen and pelvis was performed with intravenous contrast. The dose-length product was 178.28 mGy-cm. COMPARISON: CT dated 10/05/2021. FINDINGS: Lung bases unremarkable. Borderline heart size. There is pectus excavatum. The liver, spleen, pancreas, adrenal glands are unremarkable. There are small subcentimeter hypovascular lesions of the kidneys, most likely benign cysts. Gallbladder is present. No significant vascular abnormality. No lymph node enlargement. Nonobstructive bowel pattern. No free air or free fluid. There is degenerative spondylosis at L4-5 and L5-S1. IMPRESSION: 1. No acute abdominal abnormality. Reviewed, dictated and finalized at location O.
--- NOTE | ~2024-12-27 | XR_ITS ---
Examination: XR chest 1V portable Clinical History: cough Comparison: None Technique: Portable AP Findings: Heart size normal. Lungs clear. Hyperinflation No acute bony abnormality. IMPRESSION: 1. No acute cardiopulmonary findings given portable technique. Reviewed, dictated and finalized at location R.
[2024-12-27 18:20] LABS: Hematocrit 45.7 % (35.0-49.0); Hemoglobin 15.3 g/dL (12.0-15.0); Mean Corpuscular HGB Conc 33.5 g/dL (32-36); Mean Corpuscular Hemoglobin 30.3 pg (27.0-31.0); Mean Corpuscular Volume 90.5 fL (78.0-102.0); Platelet Count Result 237 K/mm3 (150-420); Red Blood Count 5.05 M/mm3 (4.20-5.40); White Blood Count 25.4 K/mm3 (4.8-10.8)
[2024-12-27] MEDS: SODIUM CHLORIDE 0.9% IV 1,000 ML 999 ML IV CONT (18:25)
[2024-12-27] MEDS: ONDANSETRON INJ 4 MG/2 ML VIAL IV PUSH (18:29)
[2024-12-27 18:32] LABS: Alanine Aminotransferase 19 U/L (6-35); Albumin Level 5.1 g/dL (3.5-5.1); Alkaline Phosphatase 78 U/L (38-126); Anion Gap 20 mmol/L (4-12); Aspartate Amino Transferase 27 U/L (14-36); Bilirubin,Total 1.2 mg/dL (0.2-1.3); Blood Urea Nitrogen 39 mg/dL (7-17); Calcium 9.2 mg/dL (8.4-10.2); Carbon Dioxide 29 mmol/L (22-30); Chloride 85 mmol/L (98-107); Estimated CRCL calculation 50 ml/min; Estimated Glomerular Filt Rate > 60; Glucose 120 mg/dL (65-110); Osmolality Calculated 288 mOsm/kg (285-295); Sodium 134 mmol/L (137-145); Total Protein 8.7 g/dL (6.3-8.2)
[2024-12-27 18:37] LABS: Potassium 2.7 mmol/L (3.4-5.0)
[2024-12-27 18:58] LABS: Band Neutrophils Percent 0 % (0-6); Lymphocytes Absolute Manual 2.54 K/mm3 (1.1-4.5); Lymphocytes Percent Manual 10 % (18-44); Monocytes Absolute Manual 1.52 K/mm3 (0.1-0.90); Monocytes Percent Manual 6 % (3-9); Neutrophils Absolute Manual 21.33 K/mm3 (1.3-6.7); Neutrophils Percent Manual 84 % (46-73); Schistocytes None Seen; Total Cells Counted 100
[2024-12-27] MEDS: KCL 20 MEQ/SW 100 ML 100 ML 50 MEQ IVPB (19:34)
[2024-12-27 19:42] LABS: Add Urine Microscopic? YES; Glucose Urine UA Negative (Negative); Leukocyte Esterase Ur Negative LEU/UL (Negative); Nitrate Urine Negative (Negative); Specific Grav Ur 1.010 (1.010-1.020)
[2024-12-27] MEDS: SODIUM CHLORIDE 0.9% IV 500 ML 50 ML IV CONT (19:47)
[2024-12-27 19:50] LABS: Appearance Urine Sl Cloudy (Clear)
[2024-12-27] MEDS: METOCLOPRAMIDE HCL INJ 10 MG/2 ML VIAL 5 MG IV PUSH (19:51)
--- NOTE | 2024-12-27 21:43 | ED_ITS ---
HPI - Nausea/Vomiting/Diarrhea General Chief complaint: Nausea/Vomiting/Diarrhea Stated complaint: vomiting Time Seen by Provider: 12/27/24 17:38 Source: patient Mode of arrival: wheelchair Limitations: no limitations History of Present Illness HPI Narrative: 49-year-old with a history of fibromyalgia here with complaints of nausea, vomiting for past few days presents to the ER with a complains of feeling extremely weak and dehydrated. She denies any abdominal pain. No history of fever chills or diarrhea. MD elicited complaint: nausea and vomiting Onset (ago): day(s) (3) Description of vomiting: watery Description of diarrhea: watery Associated nausea: Yes Associated abdominal pain: Yes (only when vomiting) Pain consistency: constant Severity: moderate Quality: cramping Exacerbating factors: none Relieving factors: none Associated symptoms: denies other symptoms Related Data Home Medications ?Medication ?Instructions ?Recorded ?Confirmed ?Last Taken ?Type hydrocodone 5 mg-acetaminophen 325 5 - 325 tablet Q6-8 H PRN Pain 08/29/21 11/03/22 Unknown History mg tablet albuterol sulfate 90 mcg/actuation 2 puff inhalation Q 4-6H PRN 11/03/22 11/03/22 Unknown History aerosol inhaler Shortness Of Breath duloxetine 60 mg capsule,delayed 60 mg PO DAILY 11/03/22 Unknown History release meloxicam 15 mg tablet 15 mg PO DAILY 11/03/2210/18 Unknown History Allergies Allergy/AdvReac Type Severity Reaction Status Date / Time No Known Allergies Allergy Verified 12/27/24 17:45 Review of Systems 2 Review of Systems: All systems reviewed & are unremarkable except as noted in HPI and below Constitutional: Constitutional: Reports no additional constitutional complaints Eyes: Eyes: Reports no additional eye complaints ENT: Reports system reviewed and no additional complaints, except as documented Cardiovascular: Cardiovascular: Reports no additional cardiovascular complaints Respiratory: Respiratory: Reports no additional respiratory complaints Gastrointestinal: Gastrointestinal: Reports as per HPI Musculoskeletal: Musculoskeletal: Reports no additional musculoskeletal complaints Integumentary/Breasts: Skin/Breast: Reports system reviewed and no additional complaints, except as docu Neurologic: Reports system reviewed and no additional complaints, except as documented Psychiatric: Psychiatric: Reports no additional psychiatric complaints PMFSH Past Medical History Medical History Chronic pain Fibromyalgia Social History Social History Smoking packs per day: 1 Smoking cigarettes per day: 20.0 Years smoked: 30 Smoking pack-years: 30.00 Smoking status: Current every day smoker Tobacco type: cigarettes Second hand tobacco smoke exposure: Yes Substance use: current Substance use type: marijuana Last use: today Spiritual care concerns: No Exam 2 Narrative: GENERAL: Well-appearing, thin , and in no acute distress. HEAD: Normocephalic, atraumatic. EYES: PERRLA and EOMI. ENT: Nares clear, no rhinorrhea or epistaxis. Mucous membranes moist. NECK: Supple. CHEST: Clear to auscultation. No respiratory distress. HEART: Regular rate and rhythm. No murmur heard. Normal peripheral pulses. ABDOMEN: Soft, nontender, nondistended, normal active bowel sounds. EXTREMITIES: Normal range of motion. No edema. SKIN: Warm, dry, no rash. NEURO: No focal deficits. Alert and oriented x3. PSYCH: Normal mood and affect. Course Course Emergency Course: pt was given IV fluids ,Zofran and Reglan for nausea , her Potassium was replaced with IV Pot. her WBC count was high , CT was unremarkable .her count most likely stress reaction vs dehydration . she is feeling much better , i did inform her about her lab and CT findings she is feeling better , feels comfortable going home. Vital Signs Vital signs: Vital Signs Temperature 36.7 C 12/27/24 17:34 Pulse Rate 90 12/27/24 17:34 Respiratory Rate 16 12/27/24 17:34 Blood Pressure 101/61 12/27/24 17:34 Pulse Oximetry 93 12/27/24 17:34 Oxygen Delivery Room Air 12/27/24 17:34 Temperature 36.7 C 12/27/24 17:34 Pulse Rate 91 12/27/24 20:15 Respiratory Rate 20 12/27/24 20:15 Blood Pressure 117/83 12/27/24 20:00 Pulse Oximetry 94 12/27/24 20:15 Oxygen Delivery Room Air 12/27/24 17:34 MDM - Nausea/Vomiting/Diarrhea Differential Diagnosis Differential diagnosis: Likely gastroenteritis and dehydration Medical Records Attestation: I reviewed the patient's medical records. Lab Data Attestation: I reviewed the patient's lab results. 12/27/24 18:04 12/27/24 18:04 Labs: Lab Results 12/27/24 12/27/24 Range/Units 18:04 19:34 WBC 25.4 H (4.8-10.8) K/mm3 RBC 5.05 (4.20-5.40) M/mm3 Hgb 15.3 H (12.0-15.0) g/dL Hct 45.7 (35.0-49.0) % MCV 90.5 (78.0-102.0) fL MCH 30.3 (27.0-31.0) pg MCHC 33.5 (32-36) g/dL RDW 13.8 (11.6-14.4) % Plt Count 237 (150-420) K/mm3 MPV 11.5 (9.2-11.8) fl Immature Gran % (Auto) Not Reportable Neut % (Auto) Not Reportable Lymph % (Auto) Not Reportable [place] % (Auto) Not Reportable Eos % (Auto) Not Reportable Baso % (Auto) Not Reportable Lymph # (Auto) Not Reportable [place] # (Auto) Not Reportable Eos # (Auto) Not Reportable Baso # (Auto) Not Reportable Abs Immat Gran (auto) Not Reportable Absolute Neuts (auto) Not Reportable Absolute Nucleated RBC Not Reportable Total Counted 100 Neutrophils % (Manual) 84 H (46-73) % Band Neutrophils % 0 (0-6) % Lymphocytes % (Manual) 10 L (18-44) % Monocytes % (Manual) 6 (3-9) % Nucleated RBC % Not Reportable Abs Neuts (Manual) 21.33 H (1.3-6.7) K/mm3 Abs Lymphs (Manual) 2.54 (1.1-4.5) K/mm3 Abs Monocytes (Manual) 1.52 H (0.1-0.90) K/mm3 Platelet Estimate Adequate (Adequate) Schistocytes None seen Sodium 134 L (137-145) mmol/L Potassium 2.7 L* (3.4-5.0) mmol/L Chloride 85 L (98-107) mmol/L Carbon Dioxide 29 (22-30) mmol/L Anion Gap 20 H (4-12) mmol/L BUN 39 H (7-17) mg/dL Creatinine 0.95 (0.7-1.0) mg/dL Estim Creat Clear Calc 50 ml/min Estimated GFR > 60 (59 - ) Glucose 120 H (65-110) mg/dL Calculated Osmolality 288 (285-295) mOsm/kg Lactic Acid 1.8 (0.4-2.0) mmol/L Calcium 9.2 (8.4-10.2) mg/dL Total Bilirubin 1.2 (0.2-1.3) mg/dL AST 27 (14-36) U/L ALT 19 (6-35) U/L Alkaline Phosphatase 78 (38-126) U/L Total Protein 8.7 H (6.3-8.2) g/dL Albumin 5.1 (3.5-5.1) g/dL Urine Color Yellow (Yellow) Urine Appearance Sl cloudy A (Clear) Urine pH 7.0 (5.0-8.0) Ur Specific [place] 1.010 (1.010-1.020) Urine Protein 2+ H (Negative) Urine Glucose (UA) Negative (Negative) Urine Ketones 3+ H (Negative) Ur Blood (Man) 3+ H (Negative) Urine Nitrate Negative (Negative) Urine Bilirubin 1+ H (Negative) Urine Urobilinogen 0.2 (0.2-1.0) mg/dL Leukocyte Esterase Rfl Negative (Negative) DARÍO/UL Urine RBC 11-20 H (0-2) /hpf Urine WBC 7-9 H (0-3) /hpf Ur Squamous Epith Cells Moderate (Few) /hpf Urine Bacteria 1+ H (None) /hpf Imaging Data Radiologist's impression: ITS Impressions Chest X-Ray 12/27/24 18:30 IMPRESSION: 1. No acute cardiopulmonary findings given portable technique. Abdomen/Pelvis CT 12/27/24 19:28 IMPRESSION: 1. No acute abdominal abnormality. Discharge Plan Discharge Clinical Impression: Dehydration, Acute hypokalemia Nausea & vomiting Qualifiers: Vomiting type: unspecified Qualified Code(s): R11.2 - Nausea with vomiting, unspecified Leukocytosis Qualifiers: Leukocytosis type: unspecified Qualified Code(s): D72.829 - Elevated white blood cell count, unspecified Patient Disposition: Home Condition: Stable Instructions: Dehydration (ED), Acute Nausea and Vomiting (ED) Additional Instructions: Drink more fluids as tolerated , follow with your doctor . Patient Language: [place] Prescriptions: New ondansetron 4 mg tablet,disintegrating 4 mg PO Q6-8H PRN (Reason: nausea and vomiting) Qty: 14 0RF No Action hydrocodone-acetaminophen 5-325 mg tablet 5 - 325 tablet Q6-8H PRN (Reason: Pain) meloxicam 15 mg tablet 15 mg PO DAILY albuterol sulfate 90 mcg/actuation HFA aerosol inhaler 2 puff INHALATION Q4-6H PRN (Reason: Shortness Of Breath) duloxetine 60 mg capsule,delayed release(DR/EC) 60 mg PO DAILY Follow-up/Referrals: Greg Winn M.D. [Primary Care Provider, [facility]] Time of Disposition: 21:56
--- NOTE | 2024-12-28 | CONSULT_PTH ---
PATIENT: Elena Amaral LOC: [facility]#:[id number] AGE/SX: 49/F ROOM: RE12/27/[address]: Lane Shankar MD : 1975 BED: DIS: 12/27/2024 SPEC #: [id number] RECD: 12/28/24 09:50 STATUS: LIZ REQ #: [id number] CORY: 12/28/24 00:[address]: Lane Shankar DEPT: [facility] Consult RECD BY: Rufina Nielsen MLT, ([facility]) ENTERED: 12/28/24 09:50 SP TYPE: Consult OT DR: Greg Winn M.D. Tissues: A - Peripheral Smear Procedures: Hematology Consult
--- NOTE | 2024-12-30 13:54 | PC.NURSE ---
PRELIMINARY BLOOD CULTURE NO GROWTH DETECTED AT THIS TIME
--- NOTE | 2024-12-31 13:57 | PC.NURSE ---
Preliminary blood culture report; no growth in 24 hours.
--- NOTE | 2025-01-01 14:53 | PC.NURSE ---
Preliminary blood culture report; no growth in 48 hours.
--- NOTE | 2025-01-04 12:32 | PC.NURSE ---
FINAL BLOOD CULTURE NO AEROBIC OR ANAEROBIC GROWTH IN FIVE DAYS
== END 2024-12-27 22:20 | disposition home or self-care (01) ==
PROVIDERS: Emergency Provider Family Medicine; PCP Family Medicine
DX: E86.0 Dehydration (principal); E87.6 Hypokalemia; R11.2 Nausea with vomiting, unspecified; D72.829 Elevated white blood cell count, unspecified; F17.210 Nicotine dependence, cigarettes, uncomplicated
CPT/HCPCS: 36415; 71045; 74177; 80053; 81001; 83605; 85025; 87040; 96361; 96365; 96366; 96375; 99284; J2405; J2765; J3480; J7030; J7040; Q9967